=== PATIENT | female | born 1985 | race Caucasian/White ===

== ENCOUNTER → 2018-01-06 06:47 | Outpatient (CLI) | payer MEDICAID, SELFPAY ==
--- NOTE | 2018-01-06 06:51 | CT_ITS ---
STUDY: CT MAXILLOFACIAL SINUSES REASON FOR EXAM: Female, 32 years old. Chronic sinusitis. Nasal polyps. RADIATION DOSAGE (If Supplied By Facility): CTDIvol = ( 33.86 ) mGy, DLP = ( 875.17 ) mGycm TECHNIQUE: The patient was scanned in a multi detector CT scanner. High resolution axial imaging was performed without the administration of intravenous contrast material. Sagittal and coronal images were reconstructed. Individualized dose optimization techniques were used for this CT. COMPARISON: None. FINDINGS: FRONTAL SINUSES: There is complete opacification of the frontal sinuses. ETHMOIDAL SINUSES: Near complete opacification the ethmoid paranasal sinuses. MAXILLARY SINUSES: Moderate circumferential sinus mucosal thickening in both maxillary sinuses; right greater than left with small possible polyps in the right. SPHENOIDAL SINUSES: Small amount of circumferential sinus mucosal thickening involving the sphenoid sinuses. Complete opacification of the bilateral ostiomeatal units. Normal bilateral middle turbinates. Normal bilateral inferior turbinates. Normal midline nasal septum. The visualized osseous structures are normal. The visualized bilateral orbital contents are normal. CT/Sinus/Facial Bone IMPRESSION: Significant paranasal sinus disease as detailed above Electronically Signed: Luke Gaxiola DO at 7:29 EST Tel , Service support ,
== END ==
PROVIDERS: Family Provider Family Medicine; PCP Family Medicine; Visit Provider Otolaryngology
DX: J32.9 Chronic sinusitis, unspecified (principal); J33.9 Nasal polyp, unspecified
CPT/HCPCS: 70486

== ENCOUNTER → 2018-02-06 08:26 | Outpatient (CLI) | payer MEDICAID, SELFPAY ==
[2018-02-13 09:38] LABS: Alternaria tenuis <0.10 kU/L (Class 0); Ash, White <0.10 kU/L (Class 0); Aspergillus fumigatus <0.10 kU/L (Class 0); Bermuda Grass <0.10 kU/L (Class 0); Birch <0.10 kU/L (Class 0); Black Walnut <0.10 kU/L (Class 0); Cat Hair / Dander,Stand 1.05 kU/L (Class II); Cedar, Mountain <0.10 kU/L (Class 0); Cladosporium herbarum <0.10 kU/L (Class 0); Cockroach, American <0.10 kU/L (Class 0); Cottonwood <0.10 kU/L (Class 0); D farinae Mite <0.10 kU/L (Class 0); D pteronyssinus <0.10 kU/L (Class 0); Dog Epithelia 4.02 kU/L (Class IV); Elm, American White <0.10 kU/L (Class 0); Immunoglobulin E 104 IU/mL (0-100); Maple/Box Elder <0.10 kU/L (Class 0); Mulberry, White <0.10 kU/L (Class 0); Oak, White <0.10 kU/L (Class 0); Pecan <0.10 kU/L (Class 0); Penicillium Notatum <0.10 kU/L (Class 0); Pigweed, Rough <0.10 kU/L (Class 0); Ragweed, Short/Common <0.10 kU/L (Class 0); Russian Thistle <0.10 kU/L (Class 0); Sheep Sorrel <0.10 kU/L (Class 0); Sycamore, American <0.10 kU/L (Class 0); Timothy Grass <0.10 kU/L (Class 0)
[2018-02-14 09:15] LABS: Mouse Urine 0.25 kU/L (Class 0/I)
== END ==
PROVIDERS: Family Provider Family Medicine; PCP Family Medicine; Visit Provider Otolaryngology
DX: T78.40XA Allergy, unspecified, initial encounter (principal)
CPT/HCPCS: 36415; 82785; 86003

== ENCOUNTER 2018-04-07 09:29 | Day surgery (SDC) | payer MEDICAID, SELFPAY ==
[2018-04-01 10:41] LABS: Internal QC Validated? YES +Cl - CLEAR BKGD; Pregnancy, Urine Negative Negative
[2018-04-01 10:58] LABS: Hematocrit 45.8 % (37-47); Hemoglobin 15.2 g/dl (12.0-15.0); Mean Corp Hgb Conc 33.2 g/gl (32-36); Mean Corpuscular Hgb 32.7 pg (27.0-32.0); Mean Corpuscular Volume 98.5 fL (81-99); Mean Platelet Vol. 8.9 fl (6.2-12.0); Platelet Count 325 K/mm3 (150-450); RBC Distribution Width CV 14.7 % (11.6-14.6); RBC Distribution Width SD 52.2 fl (35.1-43.9); Red Blood Count 4.65 M/mm3 (4.2-5.4); White Blood Count 16.8 K/mm3 (4.4-11.0)
[2018-04-01 11:01] LABS: Scan Indicated on CBC? Y/N NO
[2018-04-01 11:25] LABS: Anion Gap 11 (5-15); BUN 15 mg/dL (7-18); BUN/Creat Ratio 15.2 RATIO (10-20); Chloride 104 mmol/L (98-107); Creatinine, Serum 0.98 mg/dL (0.55-1.02); EST Glomerular Filtration Rate 70 mL/min (>60); Est Glom Filt Rate - Afr Amer 85 mL/min (>60); Glucose 100 mg/dL (74-106); Potassium 4.1 mmol/L (3.5-5.1); Sodium Level 140 mmol/L (136-145)
--- NOTE | 2018-04-07 | ETH_PTH ---
PATIENT: REGINALD JOHNSON [place] [facility] [id number] AGE/SX: 33/F ROOM: RE04/07/[address]: Dr. Dk Winter MD : 1985 BED: DIS: 04/07/2018 SPEC #: [id number] RECD: 04/07/18 11:37 STATUS: ELIN AURELIA #: [id number] CLAYTON: 04/07/18 00:[address]: Dk Winter DEPT: SURGICAL PATHOLOGY RECD BY: Tai Rivas ENTERED: 04/10/18 11:37 SP TYPE: ETH TISS OTHR DR: Dr. Akiko Thibodeaux DO Tissues: A - Ethmoid sinus, NOS B - Ethmoid sinus, NOS Procedures: Decalcification bone/plaque Surgery Specimen Level IV HEADER OPERATION: Endoscopic maxillary antrostomy, bilateral total ethmoidectomy with navigation, left sphenoidectomy PRE-OP DIAGNOSIS: Chronic sinusitis, nasal polyp TISSUE SUBMITTED: A ? Contents left sinus, B ? Contents right sinus MICROSCOPIC DIAGNOSIS A. Contents of left sinus: Fragments of respiratory mucosa with chronic inflammation and bone. B. Contents of right sinus: Fragments of respiratory mucosa with chronic inflammation and bone. MARIANGEL:elaine 04/11/18 MICROSCOPIC DESCRIPTION Slides are reviewed. GROSS DESCRIPTION A - Received in fixative is one container labeled with the patient's name and designated contents of left sinus. The specimen consists of multiple irregular fragments pink soft tissue mixed with fragments of bone that in aggregate measure 5 x 3 x 0.3 cm. The specimen is totally submitted in two cassettes after decalcification. B - Received in fixative is one container labeled with the patient's name and designated contents of right sinus. The specimen consists of multiple irregular fragments pink soft tissue mixed with fragments of bone that in aggregate measure 3 x 2.5 x 0.3 cm. The specimen is totally submitted in one cassette after decalcification. / MARIANGEL:elaine 04/07/18 TC:3 CPT: 36092 x2, 34149 x2
--- NOTE | 2018-04-07 09:29 | DT_ITS ---
This patient was seen during an EMR downtime April 07, 2018 - April 14, 2018. This patient may have a combination of paper and electronic documentation or all paper documentation. All documentation is viewable within the e-chart portion of [employer] for each patient visit.
[2018-04-10 18:28] LABS: Internal QC Validated? YES +Cl - CLEAR BKGD; Pregnancy, Urine Negative Negative
== END 2018-04-07 14:30 | disposition home or self-care (01) ==
LOC: SDC 04-09 12:12
PROVIDERS: Family Provider Family Medicine; PCP Family Medicine; Visit Provider Otolaryngology
PROC: (CPT 31255; principal; 2018-04-07 10:30)
DX: J32.8 Other chronic sinusitis (principal); J45.909 Unspecified asthma, uncomplicated; F41.9 Anxiety disorder, unspecified; F17.210 Nicotine dependence, cigarettes, uncomplicated; G47.30 Sleep apnea, unspecified; E66.01 Morbid (severe) obesity due to excess calories; Z68.39 Body mass index [BMI] 39.0-39.9, adult; Z79.51 Long term (current) use of inhaled steroids; Z79.891 Long term (current) use of opiate analgesic; Z79.899 Other long term (current) drug therapy
CPT/HCPCS: 00160; 31255; 31256; 36415; 80048; 81025; 85027; 88305; 88311; 93005; 94640; J7120

== ENCOUNTER 2019-06-26 21:41 | Emergency (ER) | payer MEDICAID, SELFPAY ==
[2019-06-26 21:43] VITALS: BP 154/79; PULSE 109; RESP 20; TEMP 36.1; O2SAT 92; BMI 44.4
--- NOTE | 2019-06-26 22:12 | CT_ITS ---
STUDY: CT ABDOMEN AND PELVIS WITHOUT CONTRAST REASON FOR EXAM: Female, 34 years old. Nausea and vomiting RADIATION DOSAGE (If Supplied By Facility): CTDIvol = ( 23.97 ) mGy, DLP = ( 1353.62 ) mGycm TECHNIQUE: Transaxial images were obtained from the dome of the diaphragm to the symphysis pubis without oral contrast, and without intravenous contrast. Sagittal and coronal images were reconstructed. Individualized dose optimization techniques were used for this CT. COMPARISON: 11/10/2016 FINDINGS: The visualized lung bases are unremarkable. The visualized portions of the heart are within normal limits. There is decreased attenuation of the liver consistent with steatosis. There are surgical clips in the gallbladder fossa consistent with a prior cholecystectomy. Normal spleen. Normal pancreas. Normal bilateral adrenal glands. Normal right kidney. Normal left kidney. Normal visualized stomach. Normal small intestine. Normal colon. The appendix is visualized and appears normal. Normal abdominal aorta. Normal inferior vena cava. Normal retroperitoneum. Normal urinary bladder. 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 Normal abdominal wall. Remote rib trauma. CT/Abdomen/Pelvis without Cont IMPRESSION: No evidence of acute intestinal pathology or acute obstructive uropathy. 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 Fatty liver. Electronically Signed: Ryan Conley MD at 23:41 EDT Tel , Service support ,
--- NOTE | 2019-06-26 22:15 | ED.VISSUMM ---
- ER Visit Summary Date of Service: 06/26/19 Chief Complaint: Abdominal pain with nausea, vomiting, and diarrhea History of Present Illness: The patient is a 34 F who presents with abdominal pain, nausea, vomiting, and diarrhea that is been getting worse over the past 5 days. Patient states that she has had similar problems in the past. Patient states she had a cholecystectomy which did not improve any of her symptoms. Patient states her pain is diffuse across her abdomen. Patient states her pain is worse with movement. Patient denies any hematemesis. Patient states her diarrhea is watery and yellow. Patient denies any dysuria or hematuria. Patient denies any abnormal vaginal bleeding or discharge. Patient states the pain does radiate into her back. Also admits to a headache but states this is similar to her headache from her chronic sinusitis. Physical Examination: Vital signs are stable except for mild tachycardia of 109. Patient is afebrile. Patient is in no acute distress. Oral mucosa is pink and moist. Neck is supple. Trachea is midline. There is no JVD noted. Heart was regular and slightly tachycardic. Lungs are clear and equal bilaterally. Abdomen is soft. Bowel sounds are normal. There is diffuse tenderness. There is no rebound or guarding noted. Cranial nerves II through XII are intact. There are no focal motor or sensory deficits noted. Test Results: CBC, comprehensive metabolic profile, lipase, urinalysis, and test were obtained and were all negative. CT scan of the abdomen and pelvis was obtained. There is no acute pathology. There is a stable teratoma in the right ovary. Emergency Department Course and Treatment: Patient was given IV fluids, Zofran, and morphine here. Patient was feeling better on reevaluation. Patient was instructed to follow-up with her primary care physician in 3 to 5 days. Patient was advised she may need to see a [employer] worker for her ongoing abdominal pain. Patient was given a prescription for Zofran. Patient was instructed to return if worse in any way. Patient and her understood and were agreeable with the plan. All questions were answered. Disposition: Discharge home Impression: Abdominal pain This note was generated with [employer] dictation software. It may contain incorrect words, spelling, and punctuation that were not noted in review of the chart prior to signing ED Disposition - Plan for ED Patient: Disposition: Home or Assisted Living Diagnosis: Abdominal pain Instructions: ABDOMINAL PAIN, Unknown Cause, (Female) Prescriptions: Ondansetron [Zofran Odt] 4 mg PO Q8H PRN PRN #10 tab PRN Reason: Nausea Prescription Printed Referrals: Akiko Thibodeaux DO [Primary Care Provider] - 3-5 Days
[2019-06-26] MEDS: Morphine 4 MG/ML Syringe IV (22:30)
[2019-06-26] MEDS: 0.9% Normal Saline 1,000 ML 1000 ML IV (22:30)
[2019-06-26] MEDS: Ondansetron 4 MG/2 ML Vial IV (22:30)
[2019-06-26 22:47] LABS: Bacteria 0 SEEN /hpf (None Seen); Mucous, Urine 0 SEEN /hpf (<or=2+); Red Blood Cells-Urine 0 SEEN /hpf (0-5); White Blood Cells 0 SEEN /hpf (0-5)
[2019-06-26 22:50] LABS: Absolute Lymphocyte Count 1.84 X10^3/uL (0.83-4.51); Absolute Neutrophil Count 6.4 X10^3/uL (2.0-7.7); Basophil# 0.03 X10^3/uL; Basophil% 0.3 % (0-1); Eosinophil# 0.34 X10^3/uL; Eosinophils% 3.6 % (0-5); Hematocrit 41.5 % (37-47); Hemoglobin 13.5 g/dL (12.0-15.0); Lymphocyte # 1.84 X10^3/ul (4.0); Lymphocyte % 19.7 % (19-41); Mean Corp Hgb Conc 32.5 g/dL (32-36); Mean Corpuscular Hgb 31.6 pg (27.0-32.0); Mean Corpuscular Volume 97.2 fL (81-99); Mean Platelet Vol. 9.3 fl (6.2-12.0); Monocyte# 0.68 X10^3/uL; Monocyte% 7.3 % (0-10); NRBC Flagged by Analyzer 0 % (0-5); Neutrophil # 6.36 X10^3/uL (2.7-7.7); Neutrophil % 68.2 % (47-70); Platelet Count 281 K/mm3 (150-450); RBC Distribution Width CV 14.2 % (11.6-14.6); RBC Distribution Width SD 50.2 fl (35.1-43.9); Red Blood Count 4.27 M/mm3 (4.2-5.4); White Blood Count 9.3 K/mm3 (4.4-11.0)
[2019-06-26 22:53] LABS: Color, Urine Yellow (Yellow); Glucose, Dipstick Normal (Normal); Ketone-Dipstick Negative (Negative); Leukocyte Esterase-Dipstick Negative /ul (Negative); Nitrite-Dipstick Negative (Negative); Occult Blood-Urine Negative /ul (Negative); Protein-Dipstick Negative (Negative); Specific Gravity, Urine 1.015 (1.002-1.030); Urine Bilirubin Dipstick Negative (Negative); Urine Clarity Clear (Clear); Urine Urobilinogen Normal (Normal)
[2019-06-26 23:01] LABS: Squamous Epithelial Cells - UA 0-5 SEEN /hpf (5-10)
[2019-06-26 23:02] LABS: Internal QC Validated? YES +Cl - CLEAR BKGD; Pregnancy, Serum, hCG Quali. NEGATIVE Negative
[2019-06-26 23:07] LABS: ALB/GLOB Ratio 0.9 RATIO (0.9-2.4); AST(SGOT) 22 U/L (15-37); Alanine Aminotransfer ALT/SGPT 35 U/L (13-56); Albumin, Serum 3.2 g/dL (3.2-5.0); Alkaline Phosphatase 91 U/L (45-117); Anion Gap 7 (5-15); BUN 6 mg/dL (7-18); BUN/Creat Ratio 6.3 RATIO (10-20); Calcium,Total 8.6 mg/dL (8.5-10.1); Chloride 108 mmol/L (98-107); Creatinine, Serum 0.96 mg/dL (0.55-1.02); EST Glomerular Filtration Rate 72 mL/min (>60); Est Glom Filt Rate - Afr Amer 87 mL/min (>60); Estimated Creatinine Clearance 94.03 ml/min; Globulin 3.4 g/dL (2.2-4.2); Glucose 93 mg/dL (74-106); Lipase 145 U/L (73-393); Potassium 3.5 mmol/L (3.5-5.1); Protein, Total 6.6 g/dL (6.4-8.2); Sodium Level 142 mmol/L (136-145)
[2019-06-27 00:10] VITALS: BP 158/97; PULSE 80; RESP 17; O2SAT 98
== END 2019-06-27 00:11 | disposition home or self-care (01) ==
PROVIDERS: Emergency Provider Emergency Medicine; Family Provider Family Medicine; PCP Family Medicine
DX: R10.84 Generalized abdominal pain (principal); E66.9 Obesity, unspecified; J45.909 Unspecified asthma, uncomplicated; Z72.0 Tobacco use
CPT/HCPCS: 74176; 80053; 81001; 83690; 84703; 85025; 96361; 96374; 96375; 99283; J2405

== ENCOUNTER → 2019-10-12 14:48 | Outpatient (CLI) | payer MEDICAID, SELFPAY ==
[2019-10-12 17:42] LABS: Free T3 2.9 pg/mL (2.18-3.98); T4 Free Direct 1.06 ng/dL (0.76-1.46)
[2019-10-14 20:07] LABS: Thyroid Peroxidase AB 13 IU/mL (0-34)
[2019-10-14 20:49] LABS: Thyroglobulin Antibody < 1.0 IU/mL (0.0-0.9)
== END ==
PROVIDERS: Family Provider Family Medicine; PCP Family Medicine; Visit Provider Family Medicine
DX: E03.9 Hypothyroidism, unspecified (principal); T78.3XXA Angioneurotic edema, initial encounter
CPT/HCPCS: 36415; 84439; 84443; 84481; 86376; 86800

== ENCOUNTER → 2021-08-08 14:59 | Outpatient (CLI) | payer MEDICAID, SELFPAY ==
[2021-08-08 16:13] LABS: Hematocrit 45.2 % (37-47); Hemoglobin 14.7 g/dL (12.0-15.0); Mean Corp Hgb Conc 32.5 g/dL (32-36); Mean Corpuscular Hgb 31.1 pg (27.0-32.0); Mean Corpuscular Volume 95.8 fL (81-99); Platelet Count 314 K/mm3 (150-450); RBC Distribution Width CV 14.1 % (11.6-14.6); RBC Distribution Width SD 50.1 fl (35.1-43.9); Red Blood Count 4.72 M/mm3 (4.2-5.4); White Blood Count 12.3 K/mm3 (4.4-11.0)
[2021-08-08 16:27] LABS: hCG Titer Quant., Serum < 1 mIU/mL (1-3)
[2021-08-08 16:29] LABS: Vitamin D,25 Hydroxy 21.3 ng/mL
[2021-08-08 17:05] LABS: Hemoglobin A1c 5.5 % (3.8-5.6)
[2021-08-08 17:53] LABS: Estradiol 51.2 pg/mL; Follicle Stimulating Hormone 5.4 mIU/mL; Luteinizing Hormone 9.4 mIU/mL; T4 Free Direct 1.08 ng/dL (0.76-1.46); Thyroid Stim Hormone (TSH) 0.59 uIU/mL (0.358-3.74)
[2021-08-10 14:09] LABS: DHEA Sulfate 25.5 ug/dL (84.8-378.0)
[2021-08-10 22:07] LABS: Chlamydia By Nucleic Acid AMP Negative (Negative)
[2021-08-10 22:32] LABS: Gonococcus By Nucleic Acid AMP Negative (Negative)
[2021-08-11 17:15] LABS: HPV Reflexed? NOT INDICATED
== END ==
PROVIDERS: PCP Family Medicine; Visit Provider Obstetrics & Gynecology
DX: Z12.4 Encounter for screening for malignant neoplasm of cervix (principal); Z11.3 Encounter for screening for infections with a predominantly sexual mode of transmission; N92.6 Irregular menstruation, unspecified; E11.9 Type 2 diabetes mellitus without complications
CPT/HCPCS: 36415; 82306; 82627; 82670; 83001; 83002; 83036; 84146; 84403; 84439; 84443; 84702; 85027; 87491; 87591; 88175; 82626; G0145

== ENCOUNTER 2021-10-25 22:45 | Emergency (ER) | payer MEDICAID, SELFPAY ==
[2021-10-25 22:47] VITALS: BP 140/90; PULSE 120; RESP 16; TEMP 37.3; O2SAT 96; BMI 43.7
--- NOTE | 2021-10-25 23:02 | EX.ED.DYSGE1 ---
HPI History of Present Illness Chief Complaint: Fever Detail of Chief Complaint: Fever, cough, vomiting, and diarrhea Informant: patient Narrative Narrative: Patient presents to the emergency department feeling like she has the flu. Patient states she initially started with a headache 2 days ago. Patient subsequently developed fever up to 1025 at home. Patient also started with vomiting and diarrhea today and has had 4 episodes of each. She denies urinary symptoms. She has not been vaccinated against Covid. She denies sick contacts. She denies significant abdominal pain. [facility] Medical History (Updated 10/26/21 @ 00:[address] Jon Gan, ) Asthma Migraines Home Medications albuterol sulfate [Proair Hfa (SP)Vent Pts] 1 puff INHALATION Q4H PRN PRN 01/26/15 [History Last Taken 01/09/17] cetirizine [Zyrtec] 10 mg PO PRN PRN 01/26/15 [History Last Taken 01/09/17] montelukast 10 mg PO DAILY 01/26/15 [History Last Taken 01/09/17] citalopram 20 mg PO DAILY 02/11/16 [History Last Taken 01/09/17] prednisone 40 mg PO DAILY@0800 #4 tablet 01/09/17 [Rx Last Taken Unknown] doxycycline hyclate 100 mg PO DAILY 04/01/18 [History Last Taken Unknown] hydrocodone-acetaminophen [Thermal] 1 tab PO Q6H PRN PRN 04/01/18 [History Last Taken Unknown] mometasone-formoterol [Dulera] 2 puff IN BID 04/01/18 [History Last Taken Unknown] oxycodone-acetaminophen 1 tab PO DAILY 04/01/18 [History Last Taken Unknown] tramadol 50 mg PO DAILY 04/01/18 [History Last Taken Unknown] ondansetron 4 mg PO Q8H PRN PRN #10 tab 06/26/19 [Rx Last Taken Unknown] Allergy/AdvReac Type Severity Reaction Status Date / Time amoxicillin Allergy Intermediate Hives Verified 10/25/21 22:46 Penicillins Allergy Intermediate Hives Verified 10/25/21 22:46 acetaminophen [From Tylenol] Allergy Hives Verified 10/25/21 22:46 aspirin Allergy Hives Verified 10/25/21 22:46 ibuprofen Allergy Hives Verified 10/25/21 22:46 sulfamethoxazole Allergy Hives Verified 10/25/21 22:47 [From ] trimethoprim [From ] Allergy Hives Verified 10/25/21 22:47 Social History Smoking Status: Current every day smoker tobacco type: cigarettes ROS ROS ED Constitutional Constitutional ED: Reports systems reviewed and no addt'l complaints, except as documented and fever(s); Denies body ache(s), change in weight or chills Eyes Eyes: Denies acute decrease in peripheral vision, change in vision, double vision or loss of vision ENT ENT ED: Reports none; Denies ear pain, lip swelling, loss taste/smell, neck pain, otalgia or sore throat Cardiovascular Cardiovascular: Reports none; Denies abdominal pain, chest pain with activity, leg edema, lightheadedness, palpitations, rapid heart rate or syncope Respiratory/Chest Respiratory/Chest: Reports none and cough; Denies change in mental status, dry cough, dyspnea, hemoptysis, shortness of breath at rest or shortness of breath with exertion Gastrointestinal Gastrointestinal: Reports none, diarrhea, nausea and vomiting; Denies abdominal pain, change in stool character, hematemesis, hematochezia, melena or rectal bleeding Genitourinary Genitourinary ED: Reports none; Denies abdominal discomfort, anuria, dysuria, genital pain or polyuria Musculoskeletal Musculoskeletal: Reports none and myalgias; Denies arthralgias, back pain, difficulty walking, extremity pain or muscle weakness Integumentary Reports none; Denies abscess or rash Neurologic Neurologic: Reports none and headache(s); Denies abnormal gait, confusion, focal weakness, frequent falls, loss of vision, numbness, paresthesias, radicular pain, vertigo or weakness Psychiatric Psychiatric: Reports systems reviewed and no addt'l complaints, except as documented and none; Denies behavioral changes, confusion, difficulty concentrating, hallucinations, suicidal ideation, tactile hallucinations or visual hallucinations Endocrine Endocrinology: Denies none, cold intolerance, excessive sweating, fatigue or heat intolerance Hematologic/Lymphatic Hematologic/Lymphatic: Reports none; Denies anemia, easy bleeding or easy bruising Allergic/Immunologic Allergic/Immunologic ED: Denies as per HPI, none, lip swelling, mouth swelling, throat swelling, tongue swelling or hives EXAM Physical Exam Const Vital Signs: 10/25/21 22:47 10/25/21 23:19 Temperature 99.1 F Temperature Source Temporal Pulse Rate 120 H Respiratory Rate 16 Respiratory Pattern Normal Blood Pressure 140/90 H Blood Pressure Mean 106 Pulse Ox 96 Oxygen Delivery Method Room Air Positive well nourished and well developed General Appearance ED: well developed and NAD HEENT Reports TM's clear and moist mucous membranes normocephalic and atraumatic; Negative for trauma or tenderness Tympanic Membrane ED: Yes TM's clear Eyes PERRL and EOMs intact bilaterally General Eye ED: Negative for pale conjunctiva or scleral icterus Neck no lymphadenopathy, supple and no JVD General: Negative for tenderness Chest Wall inspection of chest normal and palpation of chest normal Chest: Negative for tenderness Resp normal respiratory effort and clear to auscultation bilaterally Effort and Inspection: Negative for respiratory distress or pain with movement Auscultation: Negative for rhonchi, wheezes or diminished lung sounds Cardio regular rate, regular rhythm, S1 normal heart sound, S2 normal heart sound and no murmurs Peripheral Pulses: pulses 2+ throughout GI normal to inspection, nondistended, normoactive bowel sounds, soft to palpation, non-tender, non-distended and no masses Back/Spine no CVA tenderness and no thoracic nor lumbar tenderness Extremity normal to inspection General Extremety ED: Negative for edema General Extremity: Negative for edema Neuro oriented x3, CN's II-XII intact bilaterally, no sensory deficits noted and gait normal Sensorium / Orientation: awake, alert, oriented to person, oriented to place and oriented to time Motor Exam: strength 5/5 throughout and strength abnormal Psych mental status grossly normal Skin no rashes or lesions noted and no wounds MDM MDM MDM Narrative Medical decision making narrative: IV line established on arrival. Lab work-up was unremarkable. Patient tested positive for COVID-19. Patient was ambulated in the department and her O2 sat was 89 to 90% with ambulation and with rest came up into the mid 90s. At this point she does not qualify for home O2. Patient advised to monitor her oxygen saturations at home and to return if worsening shortness of breath, chest pain, or condition should worsen anyway. Patient to continue with her prednisone at home. Patient was offered referral for monoclonal antibody treatments and she is refusing. I explained to the patient that she is considered high risk because of her BMI and felt they might be beneficial to her to keep her from getting sicker with COVID-19. Patient understands and is refusing. Lab Data Attestation: I reviewed the patient's lab results. Labs: Laboratory Results - last 24 hr 10/25/21 10/25/21 10/25/21 23:15 23:15 23:35 WBC 8.6 RBC 4.51 Hgb 14.1 Hct 42.3 MCV 93.8 MCH 31.3 MCHC 33.3 RDW Std Deviation 51.4 H RDW Coeff of [place] 14.7 H Plt Count 224 MPV 9.2 Immature Gran % (Auto) 2.000 H Neut % (Auto) 68.0 Lymph % (Auto) 16.4 L [place] % (Auto) 11.9 H Eos % (Auto) 1.4 Baso % (Auto) 0.3 Absolute Neuts (auto) 5.9 Absolute Lymphs (auto) 1.42 Nucleated RBC % 0 Sodium 140 Potassium 3.8 Chloride 107 Carbon Dioxide 24.0 Anion Gap 9 BUN 14 Creatinine 1.13 H Estim Creat Clear Calc 78.41 Est GFR (MDRD) Af Amer 71 Est GFR (MDRD) Non-Af 58 L BUN/Creatinine Ratio 12.4 Glucose 96 Calcium 8.5 Urine Color Yellow Urine Clarity Clear Urine pH 7.0 Ur Specific [place] 1.015 Urine Protein Negative Urine Glucose (UA) Normal Urine Ketones Negative Urine Occult Blood Negative Urine Nitrite Negative Urine Bilirubin Negative Urine Urobilinogen Normal Ur Leukocyte Esterase Negative Urine RBC 0 SEEN Urine WBC 0 SEEN Ur Squamous Epith Cells 0-5 SEEN Urine Bacteria RARE Urine Mucus 0 SEEN Radiography Chest X-Ray - ED: 1 View Diagnostic Testing: One view chest x-ray obtained interpreted by myself as faint bibasilar infiltrates. Official report from radiology pending. Discharge Plan Triage Chief Complaint: Fever ED Provider: Jon Gan Dx/Rx/DC Orders Clinical Impression: COVID-19 Instructions: Caring for Someone Who Has COVID-19 Prescriptions: No Action montelukast 10 MG tablet 10 mg PO DAILY RF: 0 albuterol sulfate [ProAir HFA] 1 PUFF inhaler 1 puff inhalation Q4H PRN PRN (Reason: Shortness Of Breath) RF: 0 cetirizine [Zyrtec] 10 MG capsule 10 mg PO PRN PRN (Reason: Allergies) RF: 0 citalopram 20 MG tablet 20 mg PO DAILY RF: 0 prednisone 20 MG tablet 40 mg PO DAILY@0800 Qty: 4 RF: 0 hydrocodone-acetaminophen [Thermal] 5-325 mg tablet 1 tab PO Q6H PRN PRN (Reason: Pain) RF: 0 doxycycline hyclate 100 mg tablet 100 mg PO DAILY RF: 0 mometasone-formoterol [Dulera] 100-5 mcg/actuation Hfa.Aer.Ad 2 puff IN BID RF: 0 tramadol 50 MG tablet 50 mg PO DAILY RF: 0 oxycodone-acetaminophen 1 TABLET tablet 1 tab PO DAILY RF: 0 ondansetron 4 MG tablet 4 mg PO Q8H PRN PRN (Reason: Nausea) Qty: 10 RF: 0 Primary Care Provider: Akiko Thibodeaux Referrals: Akiko Thibodeaux DO [Primary Care Provider] - 3-5 Days Disposition Disposition: Home, Self Care
[2021-10-25] MEDS: 0.9% Normal Saline 1,000 ML 1000 ML IV (23:17)
[2021-10-25] MEDS: Ondansetron 4 MG/2 ML Vial IV (23:17)
[2021-10-25 23:43] LABS: Mucous, Urine 0 SEEN /hpf (<or=2+); Red Blood Cells-Urine 0 SEEN /hpf (0-5); White Blood Cells 0 SEEN /hpf (0-5)
[2021-10-25 23:44] LABS: Absolute Lymphocyte Count 1.42 X10^3/uL (0.83-4.51); Absolute Neutrophil Count 5.9 X10^3/uL (2.0-7.7); Basophil# 0.03 X10^3/uL; Basophil% 0.3 % (0-1); Eosinophil# 0.12 X10^3/uL; Eosinophils% 1.4 % (0-5); Hematocrit 42.3 % (37-47); Hemoglobin 14.1 g/dL (12.0-15.0); Lymphocyte # 1.42 X10^3/ul (0.83-4.51); Lymphocyte % 16.4 % (19-41); Mean Corp Hgb Conc 33.3 g/dL (32-36); Mean Corpuscular Hgb 31.3 pg (27.0-32.0); Mean Corpuscular Volume 93.8 fL (81-99); Mean Platelet Vol. 9.2 fl (6.2-12.0); Monocyte# 1.03 X10^3/uL; Monocyte% 11.9 % (0-10); NRBC Flagged by Analyzer 0 % (0-5); Neutrophil # 5.87 X10^3/uL (2.7-7.7); Platelet Count 224 K/mm3 (150-450); RBC Distribution Width CV 14.7 % (11.6-14.6); RBC Distribution Width SD 51.4 fl (35.1-43.9); Red Blood Count 4.51 M/mm3 (4.2-5.4); White Blood Count 8.6 K/mm3 (4.4-11.0)
[2021-10-25 23:45] LABS: Color, Urine Yellow (Yellow); Glucose, Dipstick Normal (Normal); Ketone-Dipstick Negative (Negative); Leukocyte Esterase-Dipstick Negative /ul (Negative); Nitrite-Dipstick Negative (Negative); Occult Blood-Urine Negative /ul (Negative); Protein-Dipstick Negative (Negative); Specific Gravity, Urine 1.015 (1.002-1.030); Urine Bilirubin Dipstick Negative (Negative); Urine Clarity Clear (Clear); Urine Urobilinogen Normal (Normal)
[2021-10-25 23:46] LABS: Anion Gap 9 (5-15); BUN 14 mg/dL (7-18); BUN/Creat Ratio 12.4 RATIO (10-20); Calcium,Total 8.5 mg/dL (8.5-10.1); Chloride 107 mmol/L (98-107); Creatinine, Serum 1.13 mg/dL (0.55-1.02); EST Glomerular Filtration Rate 58 mL/min (>60); Est Glom Filt Rate - Afr Amer 71 mL/min (>60); Estimated Creatinine Clearance 78.41 ml/min; Glucose 96 mg/dL (74-106); Potassium 3.8 mmol/L (3.5-5.1); Sodium Level 140 mmol/L (136-145)
[2021-10-26 00:06] LABS: Squamous Epithelial Cells - UA 0-5 SEEN /hpf (5-10)
[2021-10-26 00:07] LABS: Bacteria RARE /hpf (None Seen)
[2021-10-26 00:15] VITALS: O2SAT 95
--- NOTE | 2021-10-26 00:30 | RAD_ITS ---
STUDY: X-RAY CHEST REASON FOR EXAM: Female, 36 years old. Cough TECHNIQUE: Single AP portable view of the chest. COMPARISON: 12/13/2015 FINDINGS: The lungs are clear and expanded. There is no demonstrated pleural abnormality. Normal size heart. Normal mediastinum and keira. Normal visualized pulmonary arteries. Normal visualized aortic arch and descending thoracic aorta. There is no demonstrated abnormality of the visualized soft tissue structures of the upper abdomen. RAD/Chest 1 View (Portable) IMPRESSION: No acute abnormal cardiopulmonary finding. Electronically Signed: Brandon Garza MD at 1:11 EST Tel , Service support ,
== END 2021-10-26 00:56 | disposition home or self-care (01) ==
PROVIDERS: Emergency Provider Emergency Medicine; PCP Family Medicine
DX: U07.1 COVID-19 (principal); J45.909 Unspecified asthma, uncomplicated; F17.210 Nicotine dependence, cigarettes, uncomplicated; Z79.51 Long term (current) use of inhaled steroids
CPT/HCPCS: 71045; 80048; 81001; 85025; 87426; 87804; 96361; 96374; 99283; J7030; J2405

== ENCOUNTER 2021-11-17 11:54 | Emergency (ER) | payer MEDICAID, SELFPAY ==
[2021-11-17 11:55] VITALS: BP 163/87; PULSE 94; RESP 16; TEMP 36.1; O2SAT 100; BMI 43.2
--- NOTE | 2021-11-17 12:39 | RAD_ITS ---
STUDY: X-RAY - RIGHT FOOT CLINICAL: Female, 36 years old. Heel pain following a fall. TECHNIQUE: 3 view(s) of the foot. COMPARISON: None. FINDINGS: Normal talus, calcaneus, and tarsal bones. Normal visualized subtalar, talonavicular, calcaneocuboid, tarsal and tarsometatarsal articulations. Normal metatarsi. Normal metatarsophalangeal joint of the great toe. Normal tibial and fibular sesamoid bones. Normal interphalangeal joint of the great toe. Normal phalanges of the great toe. Normal second through fifth metatarsophalangeal joints. Normal interphalangeal joints and phalanges of the lesser toes. The soft tissue structures are unremarkable. RAD/Foot min 3 Views IMPRESSION: Normal x-ray examination of the foot. Electronically Signed: Sonu Chi MD at 13:03 EST , Service support ,
--- NOTE | 2021-11-17 14:44 | ED.VIS.LOWEX ---
HPI History of Present Illness Chief Complaint: Lower Extremity Injury Narrative Narrative: 36-year-old female presenting with right foot pain. She states he tripped on the stairs and hit her right heel on the ground. She is having trouble walking secondary to pain. She denies pain elsewhere. She was able to ambulate into the ED. [facility] Medical History Asthma Migraines Home Medications albuterol sulfate [Proair Hfa (SP)Vent Pts] 1 puff INHALATION Q4H PRN PRN 01/26/15 [History Last Taken 01/09/17] cetirizine [Zyrtec] 10 mg PO PRN PRN 01/26/15 [History Last Taken 01/09/17] montelukast 10 mg PO DAILY 01/26/15 [History Last Taken 01/09/17] citalopram 20 mg PO DAILY 02/11/16 [History Last Taken 01/09/17] prednisone 40 mg PO DAILY@0800 #4 tablet 01/09/17 [Rx Last Taken Unknown] Dulera 2 puff IN BID 04/01/18 [History Last Taken Unknown] doxycycline hyclate 100 mg PO DAILY 04/01/18 [History Last Taken Unknown] oxycodone-acetaminophen 1 tab PO DAILY 04/01/18 [History Last Taken Unknown] tramadol 50 mg PO DAILY 04/01/18 [History Last Taken Unknown] ondansetron 4 mg PO Q8H PRN PRN #10 tab 06/26/19 [Rx Last Taken Unknown] Allergy/AdvReac Type Severity Reaction Status Date / Time amoxicillin Allergy Intermediate Hives Verified 11/17/21 11:56 Penicillins Allergy Intermediate Hives Verified 11/17/21 11:56 acetaminophen [From Tylenol] Allergy Hives Verified 11/17/21 11:56 aspirin Allergy Hives Verified 11/17/21 11:56 ibuprofen Allergy Hives Verified 11/17/21 11:56 sulfamethoxazole Allergy Hives Verified 11/17/21 11:56 [From Septra] trimethoprim [From Julra] Allergy Hives Verified 11/17/21 11:56 Surgical History Hx of cholecystectomy Social History Smoking Status: Current every day smoker tobacco type: cigarettes ROS ROS ED Constitutional Constitutional ED: Denies chills or fever(s) Eyes Eyes: Denies blurry vision or diplopia ENT ENT ED: Denies rhinorrhea or sore throat Cardiovascular Cardiovascular: Denies chest pain or palpitations Respiratory/Chest Respiratory/Chest: Denies cough, dyspnea or dyspnea on exertion Gastrointestinal Gastrointestinal: Denies abdominal pain, nausea or vomiting Genitourinary Genitourinary ED: Denies dysuria or hematuria Musculoskeletal Musculoskeletal: Reports other Details: Right heel pain Integumentary Denies rash Neurologic Neurologic: Denies headache(s) or paresthesias EXAM Physical Exam Const Vital Signs: 11/17/21 11:55 Temperature 97 F L Temperature Source Temporal Pulse Rate 94 Respiratory Rate 16 Blood Pressure 163/87 H Blood Pressure Mean 112 Pulse Ox 100 Oxygen Delivery Method Room Air Positive well nourished General Appearance ED: NAD HEENT normocephalic and atraumatic Resp normal respiratory effort Cardio regular rate and no murmurs Extremity Extremity Narrative: Tenderness palpation right calcaneus. No obvious deformity. No malleoli or tenderness. No pain at the fifth metatarsal. No deformity, swelling, erythema. Sensation intact. Neuro oriented x3 Sensorium / Orientation: alert Skin no wounds Lesions: no lesions Rashes: no rashes MDM MDM MDM Narrative Medical decision making narrative: Patient presenting with right heel pain. There is no external signs of trauma. I obtained an x-ray of the right foot which on my interpretation shows no acute fracture or subluxation. Patient is offered crutches if she needs them but states she will just walk on it. Patient is counseled to alternate Tylenol and ibuprofen for pain and to use ice and elevation as adjuncts. Impression: 1. Right heel contusion Radiography Diagnostic Testing: Clinical Impression(s) from Imaging Studies Foot X-Ray 11/17/21 12:39 IMPRESSION: Normal x-ray examination of the foot. Electronically Signed: Sonu Chi MD at 13:03 EST , Service support , Discharge Plan Triage Chief Complaint: Lower Extremity Injury ED Provider: Arvin Snyder Dx/Rx/DC Orders Instructions: ED Foot Contusion Prescriptions: No Action montelukast 10 MG tablet 10 mg PO DAILY RF: 0 albuterol sulfate [ProAir HFA] 1 PUFF inhaler 1 puff inhalation Q4H PRN PRN (Reason: Shortness Of Breath) RF: 0 Zyrtec 10 MG capsule 10 mg PO PRN PRN (Reason: Allergies) RF: 0 citalopram 20 MG tablet 20 mg PO DAILY RF: 0 prednisone 20 MG tablet 40 mg PO DAILY@0800 Qty: 4 RF: 0 doxycycline hyclate 100 mg tablet 100 mg PO DAILY RF: 0 Dulera 100-5 mcg/actuation HFA aerosol inhaler 2 puff IN BID RF: 0 tramadol 50 MG tablet 50 mg PO DAILY RF: 0 oxycodone-acetaminophen 1 TABLET tablet 1 tab PO DAILY RF: 0 ondansetron 4 MG tablet 4 mg PO Q8H PRN PRN (Reason: Nausea) Qty: 10 RF: 0 Primary Care Provider: Akiko Thibodeaux Referrals: Akiko Thibodeaux DO [Primary Care Provider] - Disposition Disposition: Home, Self Care Discharge Date/Time: 11/17/21 13:44
== END 2021-11-17 13:44 | disposition home or self-care (01) ==
PROVIDERS: Emergency Provider Student in an Organized Health Care Education/Training Program; PCP Family Medicine; Visit Provider Student in an Organized Health Care Education/Training Program
DX: S90.31XA Contusion of right foot, initial encounter (principal); F17.210 Nicotine dependence, cigarettes, uncomplicated; J45.909 Unspecified asthma, uncomplicated; G43.909 Migraine, unspecified, not intractable, without status migrainosus; W10.9XXA Fall (on) (from) unspecified stairs and steps, initial encounter; Z79.899 Other long term (current) drug therapy
CPT/HCPCS: 73630; 99282

== ENCOUNTER → 2022-11-28 | Outpatient (CLI) | payer MEDICAID, SELFPAY ==
[2022-11-28 12:37] LABS: Hemoglobin A1c 7.1 % (3.8-5.6)
[2022-11-28 12:44] LABS: AST(SGOT) 30 U/L (15-37); Alanine Aminotransfer ALT/SGPT 65 U/L (13-56); Albumin, Serum 3.4 g/dL (3.2-5.0); Alkaline Phosphatase 80 U/L (45-117); Anion Gap 5 (5-15); BUN 11 mg/dL (7-18); BUN/Creat Ratio 12.4 RATIO (10-20); Calcium,Total 8.8 mg/dL (8.5-10.1); Chloride 107 mmol/L (98-107); Creatinine, Serum 0.89 mg/dL (0.55-1.02); EST Glomerular Filtration Rate 76 mL/min (>60); Est Glom Filt Rate - Afr Amer 93 mL/min (>60); Free T3 3.3 pg/mL (2.18-3.98); Globulin 3.5 g/dL (2.2-4.2); Glucose 135 mg/dL (74-106); Protein, Total 6.9 g/dL (6.4-8.2); Sodium Level 141 mmol/L (136-145); T4 Free Direct 1.14 ng/dL (0.76-1.46); Thyroid Stim Hormone (TSH) 1.28 uIU/mL (0.358-3.74)
== END | disposition home or self-care (01) ==
LOC: BFHLAB 10:07
PROVIDERS: PCP Family Medicine; Visit Provider Family Medicine
DX: R53.83 Other fatigue (principal); Z51.81 Encounter for therapeutic drug level monitoring
CPT/HCPCS: 36415; 80053; 83036; 84439; 84443; 84481

== ENCOUNTER → 2024-04-03 | Outpatient (CLI) | payer MEDICAID, SELFPAY | END | disposition home or self-care (01) | LOC: SL 20:38 | PROVIDERS: PCP Family Medicine; Referring Provider Family Medicine; Visit Provider Family Medicine | DX: G47.33 Obstructive sleep apnea (adult) (pediatric) (principal) | CPT/HCPCS: 95811 ==

== ENCOUNTER → 2024-04-30 | Outpatient (CLI) | payer MEDICAID, SELFPAY | END | disposition home or self-care (01) | LOC: SL 19:56 | PROVIDERS: PCP Family Medicine; Referring Provider Family Medicine; Visit Provider Family Medicine | DX: G47.33 Obstructive sleep apnea (adult) (pediatric) (principal) | CPT/HCPCS: 95811 ==